=== PATIENT | male | born 1950 | race Caucasian/White ===

== ENCOUNTER → 2016-12-11 | Day surgery (SDC) | payer MEDICARE, BC ==
[~2016-12-11] MED LIST: TRIAMCINOLONE ACETONIDE 40 MG/ML SUS ONE
[2016-12-11 11:07] VITALS: RESP 16
[2016-12-11 11:45] VITALS: BP 160/65; PULSE 70; TEMP 97.2; O2SAT 98
== END | disposition home or self-care (01) | DRG 552 ==
LOC: SURG 10:31
PROVIDERS: ATTEND Nurse Anesthetist, Certified Registered
DX: M51.16 Intervertebral disc disorders with radiculopathy, lumbar region (principal)
CPT/HCPCS: J3300

== ENCOUNTER 2017-03-19 07:29 | Day surgery (SDC) | payer MEDICARE, BC ==
[~2017-03-19 07:29] MED LIST changes: +PROPOFOL 500 MG/50 ML EMU IV ONE; -TRIAMCINOLONE ACETONIDE 40 MG/ML SUS ONE
[2017-03-19 09:51] VITALS: RESP 20; TEMP 96.8
[2017-03-19 10:01] VITALS: BP 176/80; PULSE 52; O2SAT 99
== END 2017-03-19 10:10 | disposition home or self-care (01) | DRG 951 ==
LOC: SURG 07:29
PROVIDERS: ATTEND Surgery
DX: Z12.11 Encounter for screening for malignant neoplasm of colon (principal); D12.2 Benign neoplasm of ascending colon; K63.89 Other specified diseases of intestine; E11.9 Type 2 diabetes mellitus without complications
CPT/HCPCS: 82962; J2704

== ENCOUNTER 2017-12-29 12:22 | Day surgery (SDC) | payer MEDICARE, BC ==
[2017-12-29] MEDS ORDERED: TRIAMCINOLONE ACETONIDE 40 MG/ML SUS ONE (13:10)
[2017-12-29] MEDS ORDERED: BUPIVACAINE HCL 0.25% MPF 30 ML SOL INFIL ONE (13:11)
[2017-12-29 13:25] VITALS: PULSE 65
[2017-12-29 13:44] VITALS: BP 150/86; RESP 20; TEMP 98.3; O2SAT 96
== END 2017-12-29 14:00 | disposition home or self-care (01) | DRG 558 ==
LOC: SURG 12:22
PROVIDERS: ATTEND Nurse Anesthetist, Certified Registered
DX: M70.62 Trochanteric bursitis, left hip (principal)
CPT/HCPCS: J3300